=== PATIENT | male | born 1960 | race Caucasian/White ===

== ENCOUNTER 2019-07-31 17:39 | Emergency (ER) | payer BC ==
[2019-07-31] MEDS ORDERED: Sodium Chloride 0.9% 1000 ML 1,000 ML IV STA (17:58)
[2019-07-31] MEDS ORDERED: Sodium Chloride 0.9% 1000 ML 1,000 ML ONE (18:02)
--- NOTE | 2019-07-31 18:02 | ERPHSYRPT ---
- History of Present Illness Time Seen by Provider: 07/31/19 17:50 Historian: patient Exam Limitations: no limitations Patient Subjective Stated Complaint: states had sudden onset of pain right lower quad abdomen this afternoon. states had diaphoresis and nausea. states pain has been intermittent. states is much better at this time. Triage Nursing Assessment: ambulated to room per self. skin w/d, pale. resp nonlabored. holding right abd. states pain at this time pain is only a 2. abd soft, tender rlq. normal bowel sounds. Physician History: Severe RLQ abdominal pain of sudden onset. The patient has never had this type of pain in the past. 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 Patient' s father had a history of kidney stones. Patient has no past abdominal or urological surgical history. Timing/Duration: today, hour(s) (2) Activities at Onset: none Quality: cramping, stabbing Abdominal Pain Onset Location: RLQ Pain Radiation: no radiation Severity of Pain-Max: severe Severity of Pain-Current: none Modifying Factors: Worsens With: breathing, coughing, eating, lying down, movement, palpation, rest, vomiting Associated Symptoms: diaphoresis, nausea, vomiting, No back, No chest pain, No diarrhea, No fever/chills, No fatigue, No headache, No heartburn, No loss of appetite, No neck pain, No rash, No shortness of breath, No syncope, No testicular pain, No weakness Previous symptoms: no prior history, no recent treatment Allergies/Adverse Reactions: No Known Drug Allergies Allergy (Unverified 07/31/19 17:47) Home Medications: No Reportable Medications [No Reported Medications] 07/31/19 [History] Hx Tetanus, Diphtheria Vaccination/Date Given: Yes Hx Influenza Vaccination/Date Given: No Hx Pneumococcal Vaccination/Date Given: Yes - Review of Systems Constitutional: No Fever, No Chills Eyes: No Symptoms Ears, Nose, & Throat: No Symptoms Respiratory: No Cough, No Dyspnea Cardiac: No Chest Pain, No Edema, No Syncope Abdominal/Gastrointestinal: Abdominal Pain, Nausea, Vomiting, No Diarrhea, No Hematemesis, No Hematochezia, No Melena Genitourinary Symptoms: No Dysuria, No Hematuria, No Urinary Retention, No Flank Pain Musculoskeletal: No Back Pain, No Neck Pain Skin: No Rash Neurological: No Dizziness, No Focal Weakness, No Sensory Changes Psychological: No Symptoms Endocrine: No Symptoms All Other Systems: Reviewed and Negative - Past Medical History Pertinent Past Medical History: Yes Respiratory History: Asthma - Past Surgical History Past Surgical History: No - Social History Smoking Status: Never smoker Exposure to second hand smoke: No Drug Use: none Patient Lives Alone: No - Nursing Vital Signs Nursing Vital Signs: Initial Vital Signs Temperature 97.7 F 07/31/19 17:40 Pulse Rate 89 07/31/19 17:40 Respiratory Rate 16 07/31/19 17:40 Blood Pressure 94/79 07/31/19 17:40 O2 Sat by Pulse Oximetry 100 07/31/19 17:40 Pain Scale Pain Intensity 0 - Physical Exam General Appearance: no apparent distress, alert Eye Exam: PERRL/EOMI, eyes nml inspection, No scleral icterus Ears, Nose, Throat Exam: normal ENT inspection, pharynx normal, moist mucous membranes Neck Exam: normal inspection, non-tender, supple, full range of motion Respiratory Exam: normal breath sounds, lungs clear, airway intact, No respiratory distress, No accessory muscle use, No crackles/rales, No rhonchi, No wheezing, No stridor Cardiovascular Exam: regular rate/rhythm, normal heart sounds, normal peripheral pulses, capillary refill <2 sec, No murmur, No friction rub Gastrointestinal/Abdomen Exam: soft, No normal bowel sounds, No tenderness, No distention, No mass Back Exam: normal inspection, normal range of motion, No CVA tenderness, No vertebral tenderness Extremity Exam: normal inspection, normal range of motion, pelvis stable Neurologic Exam: alert, oriented x 3, cooperative, normal mood/affect, nml cerebellar function, sensation nml, No motor deficits Skin Exam: normal color, warm, dry Lymphatic Exam: No adenopathy SpO2 Interpretation: normal SpO2: 100 O2 Delivery: Room Air - Course Nursing assessment & vital signs reviewed: Yes - CT Exams Abdomen/Pelvis CT Interpretation: Tele-radiologist Report, Other (per radiologist's interpretation: Colonic diverticulosis without radiographic evidence of acute diverticulitis. Punctate left nostril to nephrolithiasis. No hydronephrosis or evidence of obstructive urolithiasis. Small fat-containing bilaterally or hernias. No findings to suggest acute appendicitis. tiny hiatal hernia. mmild bibasilar atelectasis. Liver, gallbladder and bile ducts, pancreas, spleen, adrenals grossly unremarkable. Stomach and bowel unremarkable psychologic diverticulosis. No free air or fluid collection in the intraperitoneal space. Unremarkable lymph nodes. Unremarkable vasculature) Ordered Tests: Active Orders 24 hr Category Date Time Status IV Insertion STAT Care 07/31/19 17:58 Active NPO (ED) STAT Care 07/31/19 17:58 Active ABDOMEN AND PELVIS W/0 CONTRAS [CT] Stat Exams 07/31/19 18:44 Taken AMYLASE Stat Lab 07/31/19 18:18 Completed CBC W DIFF Stat Lab 07/31/19 18:18 Completed CMP Stat Lab 07/31/19 18:18 Completed LIPASE Stat Lab 07/31/19 18:18 Completed UA W/RFX UR CULTURE Stat Lab 07/31/19 19:27 Completed Medication Summary Discontinued Medications Generic Name Dose Route Start Last Admin Trade Name Freq PRN Reason Stop Dose Admin Sodium Chloride 1,000 mls @ 999 mls/hr 07/31/19 17:58 07/31/19 19:06 Sodium Chloride 0.9% 1000 Ml IV 07/31/19 18:58 Infused .Q1H1M STA Infusion Sodium Chloride Confirm 07/31/19 18:02 Sodium Chloride 0.9% 1000 Ml Administered 07/31/19 18:03 Dose 1,000 mls @ ud .ROUTE .[facility] Lab/Rad Data: Laboratory Result Diagrams 07/31/19 18:18 07/31/19 18:18 Laboratory Results 07/31/19 07/31/19 07/31/19 Range/Units 19:27 18:18 18:18 WBC 8.5 (4.0-10.5) K/mm3 RBC 4.94 (4.1-5.6) M/mm3 Hgb 15.2 (12.5-18.0) gm/dl Hct 45.5 (42-50) % MCV 92.1 (78-100) fl MCH 30.8 (26-32) pg MCHC 33.4 (32-36) g/dl RDW 13.5 (11.5-14.0) % Plt Count 272 (150-450) K/mm3 MPV 9.6 H (6-9.5) fl Gran % 63.3 (36.0-66.0) % Eos # (Auto) 0.24 (0-0.5) Absolute Lymphs (auto) 1.98 (1.0-4.6) Absolute Monos (auto) 0.86 (0.0-1.3) Lymphocytes % 23.2 L (24.0-44.0) % Monocytes % 10.1 (0.0-12.0) % Eosinophils % 2.8 (0.00-5.0) % Basophils % 0.6 (0.0-0.4) % Absolute Granulocytes 5.39 (1.4-6.9) Basophils # 0.05 (0-0.4) Sodium 143 (137-145) mmol/L Potassium 3.6 (3.5-5.1) mmol/L Chloride 107 (98-107) mmol/L Carbon Dioxide 26 (22-30) mmol/L Anion Gap 12.9 (5-15) MEQ/L BUN 21 H (9-20) mg/dL Creatinine 1.21 (0.66-1.25) mg/dL Estimated GFR > 60.0 ML/MIN Glucose 143 H (74-106) mg/dL Calcium 8.9 (8.4-10.2) mg/dL Total Bilirubin 0.60 (0.2-1.3) mg/dL AST 28 (17-59) U/L ALT 21 (0-50) U/L Alkaline Phosphatase 43 (38-126) U/L Serum Total Protein 6.8 (6.3-8.2) g/dL Albumin 4.0 (3.5-5.0) g/dL Amylase 80 (30-110) U/L Lipase 86 (23-300) U/L Urine Color YELLOW (YELLOW) Urine Appearance CLEAR (CLEAR) Urine pH 6.0 (5-6) Ur Specific [place] 1.014 (1.005-1.025) Urine Protein NEGATIVE (Negative) Urine Ketones NEGATIVE (NEGATIVE) Urine Blood LARGE (0-5) Jasson/ul Urine Nitrite NEGATIVE (NEGATIVE) Urine Bilirubin NEGATIVE (NEGATIVE) Urine Urobilinogen NEGATIVE (0-1) mg/dL Ur Leukocyte Esterase NEGATIVE (NEGATIVE) Urine WBC (Auto) 0-2 (0-5) /HPF Urine RBC (Auto) 11-15 (0-2) /HPF U Epithel Cells (Auto) NONE (FEW) /HPF Urine Bacteria (Auto) NONE (NEGATIVE) /HPF Urine Mucus (Auto) SLIGHT (NEGATIVE) /HPF Urine Culture Reflexed NO (NO) Urine Glucose NEGATIVE (NEGATIVE) mg/dL - Progress Progress: improved, re-examined Counseled pt/family regarding: lab results, diagnosis, need for follow-up, rad results - Departure Departure Disposition: Home, Extended Care Facility, Group Home/Retirement Clinical Impression: RLQ abdominal pain, Nephrolithiasis, Ureteral colic, Colon, diverticulosis, Hiatal hernia without gangrene and obstruction Bilateral inguinal hernia without obstruction or gangrene Qualifiers: Recurrence: non-recurrent Qualified Code(s): K40.20 - Bilateral inguinal hernia , without obstruction or gangrene, not specified as recurrent Condition: Good Critical Care Time: No Referrals: JAYLON GIBBONS [Primary Care Provider] - 08/01/19 Instructions: Kidney Stones (DC), Acute Abdomen (Belly Pain), Adult (DC), Groin Hernia (DC) Additional Instructions: Most likely your symptoms were due to a kidney stone traveling through the tightest junction of the urinary tract. You had signs of blood in your urinalysis with a left kidney stone seen on CT scan, but no further kidney stones on the right side that caused your pain. No signs of appendicitis on CT scan. Return immediately back to the Emergency Department if any worsening abdominal pain, worsening nausea or vomiting, back pain, any fever, any chills, any skin rashes, or any other concerning sign or symptom that was not presentation at today's emergency department visit for immediate reevaluation in the emergency department.
[2019-07-31 18:17] LABS: BASOPHIL % 0.6 % (0.0-0.4); Basophil (Absolute #) 0.05 (0-0.4); Eosinophil % 2.8 % (0.00-5.0); Eosinophil (Absolute #) 0.24 (0-0.5); Granulocyte Absolute (ANC) 5.39 (1.4-6.9); Granulocytes % 63.3 % (36.0-66.0); Hematocrit 45.5 % (42-50); Hemoglobin 15.2 gm/dl (12.5-18.0); Lymphocyte (Absolute #) 1.98 (1.0-4.6); Lymphocytes % 23.2 % (24.0-44.0); Mean Cell Volume 92.1 fl (78-100); Mean Corpuscular Hemoglobin 30.8 pg (26-32); Mean Corpuscular Hgb Concent. 33.4 g/dl (32-36); Mean Platelet Volume 9.6 fl (6-9.5); Monocyte (Absolute #) 0.86 (0.0-1.3); Monocytes % 10.1 % (0.0-12.0); Platelet Count 272 K/mm3 (150-450); Red Blood Count 4.94 M/mm3 (4.1-5.6); Red Cell Distribution Width 13.5 % (11.5-14.0); White Blood Count 8.5 K/mm3 (4.0-10.5)
[2019-07-31 18:29] LABS: ALKALINE PHOSPHATASE 43 U/L (38-126); AMYLASE 80 U/L (30-110); ANION GAP 12.9 MEQ/L (5-15); BLOOD UREA NITROGEN 21 mg/dL (9-20); CHLORIDE 107 mmol/L (98-107); Calcium 8.9 mg/dL (8.4-10.2); Carbon Dioxide 26 mmol/L (22-30); Creatinine 1 1.21 mg/dL (0.66-1.25); Glucose 143 mg/dL (74-106); LIPASE 86 U/L (23-300); Potassium 3.6 mmol/L (3.5-5.1); SGOT/AST 28 U/L (17-59); SGPT/ALT 21 U/L (0-50); SODIUM 143 mmol/L (137-145); Total Protein 6.8 g/dL (6.3-8.2)
[2019-07-31 19:39] LABS: Appearance CLEAR (CLEAR); Bilirubin NEGATIVE (NEGATIVE); Blood LARGE Ery/ul (0-5); Glucose NEGATIVE (NEGATIVE); Ketones NEGATIVE (NEGATIVE); Leukocyte Esterase NEGATIVE (NEGATIVE); Mucus SLIGHT /HPF (NEGATIVE); Nitrite NEGATIVE (NEGATIVE); Protein,Urine Dip NEGATIVE (Negative); Specific Gravity 1.014 (1.005-1.025); Urobilinogen NEGATIVE mg/dL (0-1); WBC 0-2 /HPF (0-5)
[2019-07-31 20:11] VITALS: BP 120/86; PULSE 91
[2019-07-31 20:19] VITALS: O2SAT 100
--- NOTE | 2019-08-01 08:59 | XRAY ---
Indication: Right lower quadrant pain. Multiple contiguous axial images obtained through the abdomen and pelvis without contrast as ordered. Comparison: None Lung bases demonstrates minimal dependent atelectasis. No infiltrate or effusion. Heart is not enlarged. Small hiatal hernia. Stomach is distended with food/fluid. Noncontrasted stomach and bowel loops appear nonobstructed. Normal appendix. Minimal descending and sigmoid diverticulosis. There is a 2 mm urinary bladder calculus. Right ureter is slightly prominent presumed from recent passage of said calculus. 1.4 cm right lower renal cyst and nonobstructing punctate left renal calculus. No free fluid/air. Remaining liver, gallbladder, pancreas, spleen, adrenal glands, kidneys, ureters, bladder, and aorta appear unremarkable for noncontrast exam. Osseous structures intact with minimal degenerative changes throughout the lumbar spine. Impression: 1. 2 mm urinary bladder calculus as detailed. Incidental nonobstructing left renal micro-calculus and right renal cyst. 2. Small hiatal hernia and colonic diverticulosis. Comment: Preliminary interpretation was made by [facility] who does not report urinary bladder calculus and right renal cyst. Telephone report given to Dr. Limon in the ER at 0855 hrs. on August 01, 2019. CT DI 11.61
== END 2019-07-31 20:30 | disposition home or self-care (01) ==
LOC: ED 17:39
DX: R10.31 Right lower quadrant pain (principal); N20.0 Calculus of kidney; N23 Unspecified renal colic; K57.90 Diverticulosis of intestine, part unspecified, without perforation or abscess without bleeding; K44.9 Diaphragmatic hernia without obstruction or gangrene; N21.0 Calculus in bladder
CPT/HCPCS: 36000; 36415; 74176; 80053; 81001; 82150; 83690; 85025; 96360; 99284